=== PATIENT | female | born 1960 | race Caucasian/White ===

== ENCOUNTER → 2017-08-02 | Outpatient (CLI) | payer OTHER ==
--- NOTE | 2017-08-03 12:29 | PCVCIMAG ---
APPROVED REPORT Study performed: 08/02/2017 13:48:27 EXAM: Limited 2D and color flow Echocardiogram Patient Location: Echo lab Status: routine BSA: 1.98 HR: 64 bpmBP: 126/74 mmHg Rhythm: NSR Other Information Study Quality: Adequate Indications Abnormal ECG Chest Pain Post -op 2D Dimensions LVEF(%): 67.19 (>50%) IVSd: 7.96 (7-11mm)LVOT Diam: 20.94 (18-24mm) LVDd: 49.94 mm PWd: 8.23 (7-11mm)Ascending Ao: 32.53 (22-36mm) LVDs: 31.26 (25-40mm) Left Atrium: 30.45 (27-40mm) Aortic Root: 30.93 mm LV Single Plane 4CH: 53.57 % LV Single Plane 2CH: 56.72 %Hpoper's LVEF: 55.15 % Biplane EF: 55.3 % Volumes Left Atrial Volume (Systole) Single Plane 4CH: 70.79 mLSingle Plane 2CH: 34.47 mL Aortic Valve AI Vmax: 4.26 m/s AI [place]: 1.72 m/s2 AI PHT: 720.49 ms Left Ventricle The left ventricle is normal size. There is normal LV segmental wall motion. There is normal left ventricular wall thickness. Left ventricular systolic function is normal. The left ventricular ejection fraction is within the normal range. LVEF is 55%. The left ventricular diastolic function is normal. Right Ventricle The right ventricle is normal size. The right ventricular systolic function is normal. Atria The left atrium size is normal. The right atrium size is normal. Aortic Valve The aortic valve is normal in structure. Mild to moderate aortic regurgitation. There is no aortic valvular stenosis. Mitral Valve The mitral valve is normal in structure. There is no mitral valve regurgitation noted. No evidence of mitral valve stenosis. Tricuspid Valve The tricuspid valve is normal in structure. There is no tricuspid valve regurgitation noted. Pulmonic Valve The pulmonary valve is normal in structure. There is no pulmonic valvular regurgitation. Great Vessels The aortic root is normal in size. IVC is normal in size and collapses with >50% inspiration Pericardium There is no pericardial effusion. <Conclusion> The left ventricle is normal size. LVEF is 55%. The left ventricular diastolic function is normal. The right ventricle is normal size. The left atrium size is normal. The aortic valve is normal in structure. Mild to moderate aortic regurgitation. There is no mitral valve regurgitation noted. There is no tricuspid valve regurgitation noted. There is no pericardial effusion.
== END | disposition home or self-care (01) ==
LOC: PCVCIMAG 14:03
PROVIDERS: ATTEND Internal Medicine Cardiovascular Disease
DX: I35.1 Nonrheumatic aortic (valve) insufficiency (principal); R94.31 Abnormal electrocardiogram [ECG] [EKG]; I10 Essential (primary) hypertension; E78.5 Hyperlipidemia, unspecified; R20.0 Anesthesia of skin; M19.90 Unspecified osteoarthritis, unspecified site; E11.9 Type 2 diabetes mellitus without complications; Z82.49 Family history of ischemic heart disease and other diseases of the circulatory system; Z90.49 Acquired absence of other specified parts of digestive tract; Z90.710 Acquired absence of both cervix and uterus; Z90.721 Acquired absence of ovaries, unilateral; Z79.899 Other long term (current) drug therapy; Z88.8 Allergy status to other drugs, medicaments and biological substances
CPT/HCPCS: 80061; 93005; 93308; G0463

== ENCOUNTER → 2017-08-03 | Outpatient (CLI) | payer OTHER ==
[~2017-08-03] MED LIST: REGADENOSON 0.4 MG/5 ML DISP.SYRIN. IV ONE
--- NOTE | 2017-08-03 17:24 | PCVCIMAG ---
APPROVED REPORT Exam: Nuclear Stress Test Indication: Chest Pain, L Arm Pain Patient Location: Out-Patient Stress Nurse: María Pacheco RN, Brii Michelle RN [place] Tech:Kentrell [place]ito NMTCB Ht: 5 ft 7 in Wt: 190 lbs BSA: 1.98 m2 HR: 67 bpm BP: 185/84 mmHg BMI: 29.7 Rhythm: SR Medical History Medical History: Age, Hyperlipidemia, HTN, Family Hx Medications: Tylenol, Synthroid Allergies: Metformin, Synthroid Pretest Chest Pain Characteristics: No chest pain Exercise History: Indeterminate Physical Disabilities: Recent neck surgery NM EXAM: Myocardial Perfusion REST/STRESS Imaging Protocol: Rest Tc-99m/Stress Tc-99m 1 day Resting Data Rest SPECT myocardial perfusion imaging was performed in supine position 45 minutes following the intravenous injection of 10.32 mCi of Tc-99m Sestamibi. Time of rest injection: 1240 Date: 08/03/2017 Pharmacologic Stress Pharmacologic stress test was performed by injecting Regadenoson 0.4 mg IV push followed by the intravenous injection of 34.6 mCi of Tc-99m Sestamibi. Time of stress injection: 1355 Date: 08/03/2017 The images were gated to evaluate regional wall motion and calculate left ventricular ejection fraction. Study Quality Study: Good Study Data Post stress, the left ventricular ejection was 71%.. SSS: 12 SRS: 0 SDS: 9 TID = 0.88. Perfusion Medium sized area of moderate reversible ischemia involving the mid/apical anterior and apical inferior left ventricle consistent with a left anterior descending distribution. Wall Motion Normal left ventricular size and function with no regional wall motion abnormalities. Nuclear Conclusion Medium sized area of moderate reversible ischemia involving the mid/apical anterior and apical inferior left ventricle consistent with a left anterior descending distribution. Normal left ventricular size and function with no regional wall motion abnormalities. Post stress, the left ventricular ejection was 71%.. No prior study available for comparison. Interpreted by: Andres Banks MD Electronically Approved: 08/03/2017 16:44:26 Stress Test Details Stress Test: Pharmacologic stress testing performed using 0.4 mg of regadenoson per 5 mL given IV over 10 seconds. HR Resting HR: 67 bpmMax Heart Rate (APMHR): 162 bpm Max HR Achieved: 100 bpmTarget HR (85% APMHR): 137 bpm % of APMHR: 61 Recovery HR: 83 bpm BP Resting BP: 185/84 mmHg Max BP: 163/89 mmHg ECG Resting ECG: Sinus Rhythm Stress ECG: Sinus Rhythm Recovery ECG: Sinus Rhythm Clinical Reason for Termination: Completed protocol Stress Symptoms: Chest Pain 6/10 Midsternal radiating to back Exercise duration: min 55 sec Exercise capacity: 1.0 METs Symptoms resolved during recovery. Stress ECG Conclusion ECG: Non-ischemic <Conclusion> ECG: Non-ischemic
== END | disposition home or self-care (01) ==
LOC: PCVCIMAG 12:22
PROVIDERS: ATTEND Internal Medicine Cardiovascular Disease
DX: I10 Essential (primary) hypertension (principal); E78.5 Hyperlipidemia, unspecified; E11.9 Type 2 diabetes mellitus without complications; K52.9 Noninfective gastroenteritis and colitis, unspecified; Z82.49 Family history of ischemic heart disease and other diseases of the circulatory system; Z79.899 Other long term (current) drug therapy
CPT/HCPCS: 78452; 93017; A9500; J2785

== ENCOUNTER → 2018-05-06 | Outpatient (CLI) | payer OTHER | END | disposition home or self-care (01) | LOC: PCVCIMAG 13:56 | DX: I25.10 Atherosclerotic heart disease of native coronary artery without angina pectoris (principal); I10 Essential (primary) hypertension; E78.5 Hyperlipidemia, unspecified; E11.9 Type 2 diabetes mellitus without complications; Z79.82 Long term (current) use of aspirin; Z79.899 Other long term (current) drug therapy | CPT/HCPCS: 93306; G0463 ==

== ENCOUNTER → 2018-10-24 | Outpatient (CLI) | payer OTHER ==
--- NOTE | 2018-10-24 13:33 | PCVCIMAG ---
APPROVED REPORT Study performed: 10/24/2018 10:59:41 Exam: Stress Echocardiogram Indication: CAD , Hypertension Patient Location: Echo lab Stress Nurse: Lillian Cardenas RN Room #: 2 Status: routine Ht: 5 ft 7 in HR: 71 bpm BP: 166/84 mmHg Rhythm: NSR Medical History Medical History: CAD non obstructive, HTN,[place] CM Cardiac Risk Factors: HTN Previous Cardiac Procedures: PCI Pretest Chest Pain Characteristics: No chest pain Exercise History: Indeterminate Physical Disabilities: Neck Procedure The patient underwent Stress Test using the [facility] Protocol. Blood pressure, heart rate, and EKG were monitored. An Echocardiogram was performed by die technician in four stages in quad fashion. At peak stress, four selected images were obtained and placed side by side with resting images for comparison. Stress Test Details Stress Test: Exercise stress testing was performed using a Jar[place]o protocol. HR Resting HR: 71 bpmMax Heart Rate (APMHR): 160 bpm Max HR Achieved: 144 bpmTarget HR (85% APMHR): 136 bpm % of APMHR: 90 Recovery HR: 81 bpm HR response to stress: Normal HR response to stress BP Resting BP: 166/84 mmHg Max BP: 186/78 mmHg Recovery BP: 146/76 mmHg BP response to stress: Normal blood pressure response to stress. ECG Resting ECG: Sinus Rhythm Stress ECG: Sinus Rhythm ST Change: Non-ischemic Arrhythmia: Rare PVCs at peak exercise Recovery ECG: Sinus Rhythm Recovery ST Change: Non-ischemic Recovery Arrhythmia: Rare PVCs Clinical Reason for Termination: Maximal effort Stress Symptoms: none Exercise duration: 9 min 47 sec Highest Stage Achieved: Stage 4: 4.2 mph at 16% grade. Exercise capacity: 12.6 METs Overall Exercise Capacity for Age: Good Scale: Active Angina Score: None No complications. Stress ECG Conclusion The patient exercised according to the JARO[facility] protocol for 9:47 mins; achieving a work level of 12.6 METS. The resting heart rate of 71 bpm diandra to a maximum heart rate of 144bpm. This value represent 90% of the maximal, age-predicted heart rate. The resting blood pressure of 166/84mmHg, diandra to a maximum blood pressure of 186/78 mmHg. The exercise test was stopped due to fatigue . Pre-Stress Echo The resting Echocardiogram showed normal left ventricular contractility with an estimated Ejection Fraction of about 55-60%. Normal wall motion in all segments on baseline images. Post-Stress Echo The stress Echocardiogram showed normal left ventricular contractility with an estimated Ejection Fraction of about 65-70%. Normal augmentation of wall motion in all segments on post stress images. Clinical No clinical or ECG evidence for ischemia. Conclusion Clinical Response: Non-ischemic Exercise Capacity: Superior Stress ECG Response: Non-ischemic Stress Echo Images: Non-ischemic No clinical, EKG or echocardiographic evidence for ischemia. No echocardiographic evidence for exercise induced ischemia. Normal stress echocardiogram with maximal exercise stress. <Conclusion> No clinical, EKG or echocardiographic evidence for ischemia. No echocardiographic evidence for exercise induced ischemia. Normal stress echocardiogram with maximal exercise stress.
== END | disposition home or self-care (01) ==
LOC: PCVCIMAG 11:32
PROVIDERS: ATTEND Internal Medicine Cardiovascular Disease
DX: I51.81 Takotsubo syndrome (principal); I10 Essential (primary) hypertension; I25.10 Atherosclerotic heart disease of native coronary artery without angina pectoris; E11.9 Type 2 diabetes mellitus without complications
CPT/HCPCS: 93325; 93351